=== PATIENT | female | born 1965 | race Caucasian/White ===

== ENCOUNTER 2019-01-19 16:12 | Emergency (ER) | payer MEDICAID ==
[2019-01-19 16:39] VITALS: TEMP 98.5
[2019-01-19 18:28] VITALS: BP 139/73; PULSE 78; RESP 18; O2SAT 100
--- NOTE | 2019-01-19 19:23 | ED PDOC ---
Arrival/HPI - General Chief Complaint: Cough, Cold, Congestion Historian: Patient - History of Present Illness Narrative History of Present Illness (Text): 01/19/19 19:08 A 53 year old female presents to the emergency department complaining of productive cough with yellowish phlegm for 1 week. Patient denies any fever, chest pain, shortness of breath, or any other complaints at this time. Denies any sick contacts or recent travel. Past Medical History - Provider Review Nursing Documentation Reviewed: Yes - Infectious Disease Hx of Infectious Diseases: None - Reproductive Menopause: Yes - Pulmonary Hx Respiratory Disorders: Yes Hx Bronchitis: Yes - Neurological Hx Neurological Disorder: Yes Hx Vertigo: Yes - HEENT Hx HEENT Disorder: No - Musculoskeletal/Rheumatological Hx Musculoskeletal Disorders: Yes Hx Back Pain: Yes - Gastrointestinal Hx Gastrointestinal Disorders: Yes - Genitourinary/Gynecological Hx Genitourinary Disorders: No - Psychiatric Hx Psychophysiologic Disorder: Yes Hx Anxiety: Yes Hx Substance Use: No - Surgical History Hx Section: Yes Other/Comment: Cyst removal from lower spine 11yo. R Lumpectomy. Gastric bypass. Hernia repair. Tummy tuck - Anesthesia Hx Anesthesia: Yes Hx Anesthesia Reactions: No Hx Malignant Hyperthermia: No Family/Social History - Physician Review Nursing Documentation Reviewed: Yes Family/Social History: No Known Family HX Smoking Status: Former Smoker Hx Alcohol Use: No Hx Substance Use: No Allergies/Home Meds Allergies/Adverse Reactions: Allergies acetaminophen [From Tylenol] Adverse Reaction (Verified 01/19/19 16:14) RASH Home Medications: Home Meds Medication Instructions Recorded Confirmed Alprazolam [Xanax] 1 tab PO PRN PRN 01/19/19 01/19/19 Baclofen [Lioresal] 10 mg PO DAILY 01/19/19 01/19/19 Escitalopram [Lexapro] 5 mg PO DAILY 01/19/19 01/19/19 Gabapentin 1 tab PO HS 01/19/19 01/19/19 Gabapentin [Neurontin] 100 mg PO BID 01/19/19 01/19/19 Liraglutide [Victoza 3-Feliciano] 0.1 ml SC DAILY 01/19/19 01/19/19 Meclizine [Meclizine*] 25 mg PO DAILY 01/19/19 01/19/19 Omeprazole 40 mg PO DAILY 01/19/19 01/19/19 Ranitidine HCl [Acid Importer Exporter] 150 mg PO DAILY 01/19/19 01/19/19 Topiramate [Topamax] 50 mg PO BID 01/19/19 01/19/19 traMADol [Ultram] 1 tab PO BID 01/19/19 01/19/19 Review of Systems - Physician Review All systems were reviewed & negative as marked: Yes - Review of Systems Constitutional: absent: Fevers Respiratory: Cough (productive), Sputum (yellowish phlegm). absent: SOB Cardiovascular: absent: Chest Pain Physical Exam Vital Signs Reviewed: Yes Vital Signs Temp Pulse Resp BP Pulse Ox 01/19/19 18:27 78 18 139/73 100 01/19/19 16:21 98.5 F 71 17 107/68 93 L Temperature: Afebrile Blood Pressure: Normal Pulse: Regular Respiratory Rate: Normal Appearance: Positive for: Well-Appearing, Non-Toxic, Comfortable Pain Distress: None Mental Status: Positive for: Alert and Oriented X 3 - Systems Exam Head: Present: Atraumatic, Normocephalic Pupils: Present: PERRL Extroacular Muscles: Present: EOMI Conjunctiva: Present: Normal Mouth: Present: Moist Mucous Membranes Neck: Present: Normal Range of Motion Respiratory/Chest: Present: Clear to Auscultation, Good Air Exchange. No: Respiratory Distress, Accessory Muscle Use Cardiovascular: Present: Regular Rate and Rhythm, Normal S1, S2. No: Murmurs Abdomen: No: Tenderness, Distention, Peritoneal Signs Back: Present: Normal Inspection Upper Extremity: Present: Normal Inspection. No: Cyanosis, Edema Lower Extremity: Present: Normal Inspection. No: Edema Neurological: Present: GCS=15, CN II-XII Intact, Speech Normal Skin: Present: Warm, Dry, Normal Color. No: Rashes Psychiatric: Present: Alert, Oriented x 3, Normal Insight, Normal Concentration Medical Decision Making ED Course and Treatment: 01/19/19 19:24 Impression: 53 year old female with productive cough with yellowish phlegm. Plan: -- Chest X-ray -- Reassess and disposition Progress Notes: - RAD Interpretation Radiology Orders: 01/19/19 16:50 CXR [CHEST TWO VIEWS (PA/LAT)] [RAD] Stat - Scribe Statement The provider has reviewed the documentation as recorded by the Lee Brady Provider Scribe Attestation: All medical record entries made by the Scribe were at my direction and personally dictated by me. I have reviewed the chart and agree that the record accurately reflects my personal performance of the history, physical exam, medical decision making, and the department course for this patient. I have also personally directed, reviewed, and agree with the discharge instructions and disposition. Disposition/Present on Arrival - Present on Arrival Any Indicators Present on Arrival: No History of DVT/PE: No History of Uncontrolled Diabetes: No Urinary Catheter: No History of Decub. Ulcer: No History Surgical Site Infection Following: None - Disposition Have Diagnosis and Disposition been Completed?: Yes Diagnosis: URI (upper respiratory infection) Disposition: HOME/ ROUTINE Disposition Time: 18:00 Condition: GOOD Discharge Instructions (ExitCare): Acute Bronchitis Additional Instructions: TINY REECE, thank you for letting us take care of you today. The emergency medical care you received today was directed at your acute symptoms. If you were prescribed any medication, please fill it and take as directed. It may take several days for your symptoms to resolve. Return to the Emergency Department if your symptoms worsen, do not improve, or if you have any other problems. Please contact your doctor or call one of the physicians/clinics you have been referred to that are listed on the Patient Visit Information form that is included in your discharge packet. Bring any paperwork you were given at discharge with you along with any medications you are taking to your follow up visit. Our treatment cannot replace ongoing medical care by a primary care provider outside of the emergency department. Thank you for allowing the [facility] team to be part of your care today. Follow up with your primary care doctor in 4-5 days for re-evaluation and further management. Prescriptions: Guaifenesin [Expectorant Cough Syrup] 100 mg PO Q8 PRN #1 bottle PRN Reason: Cough levoFLOXacin [Levaquin] 750 mg PO DAILY #5 tab Referrals: Judit Rene DO [Family Provider] - Follow up with primary Forms: Nor1 (Italian)
--- NOTE | 2019-01-20 10:48 | RAD ---
Date of service: 01/19/2019 HISTORY: cough r/o infiltrate COMPARISON: No prior. TECHNIQUE: Chest PA and lateral views FINDINGS: LUNGS: No active pulmonary disease. PLEURA: No significant pleural effusion identified. No pneumothorax apparent. CARDIOVASCULAR: No aortic atherosclerotic calcification present. Normal cardiac size. No pulmonary vascular congestion. OSSEOUS STRUCTURES: No significant abnormalities. VISUALIZED UPPER ABDOMEN: Normal. OTHER FINDINGS: None. IMPRESSION: No active disease.
== END 2019-01-19 18:37 | disposition home or self-care (01) ==
LOC: ED 16:12
DX: J06.9 Acute upper respiratory infection, unspecified (principal); Z87.891 Personal history of nicotine dependence